=== PATIENT | female | born 1955 | race Hispanic/Latino ===

== ENCOUNTER → 2025-02-08 | Outpatient (CLI) | payer OTHER, MEDICARE ==
--- NOTE | 2025-02-09 07:29 | HMCIMG ---
EXAMINATION: DUPLEX ULTRASOUND EXAMINATION OF THE BILATERAL LOWER EXTREMITY ARTERIES. CLINICAL HISTORY: PVD. COMPARISON: None. FINDINGS: Peak systolic velocities within the right lower arteries are as follows: Common femoral artery: 128 cm/s. Superficial femoral artery: 119 cm/s at proximal, 129 cm/s at mid, and 120 cm/s at distal segments. Popliteal artery: 87 cm/s at proximal and 102 cm/s at distal segments. Posterior tibial artery: 110 cm/s. Anterior tibial artery: 92 cm/s. Dorsalis pedis artery: 68 cm/s. The right lower limb arteries demonstrate triphasic waveforms in all arteries except the dorsalis pedis artery which demonstrates monophasic waveform. Peak systolic velocities within the left lower arteries are as follows: Common femoral artery: 145 cm/s. Superficial femoral artery: 117 cm/s at proximal, 157 cm/s at mid, and 66 cm/s at distal segments. Popliteal artery: 124 cm/s at proximal and 133 cm/s at distal segments. Posterior tibial artery: 113 cm/s. Anterior tibial artery: 82 cm/s. Dorsalis pedis artery: 86 cm/s. The left lower limb arteries demonstrate triphasic to biphasic waveforms in all arteries except the posterior tibial artery which demonstrates monophasic waveform. There is intimal wall thickening in both the lower limb arteries. IMPRESSION: Mild intimal wall thickening in both the lower limb arteries. The right lower limb arteries demonstrate triphasic waveforms in all arteries except the dorsalis pedis artery which demonstrates monophasic waveform. The left lower limb arteries demonstrate triphasic to biphasic waveforms in all arteries except the posterior tibial artery which demonstrates monophasic waveform. No flow limiting lesions. /Thomas
== END | disposition home or self-care (01) ==
LOC: RAH 12:07
PROVIDERS: ATTEND Internal Medicine
DX: I73.9 Peripheral vascular disease, unspecified (principal); I77.89 Other specified disorders of arteries and arterioles
CPT/HCPCS: 93925